=== PATIENT | male | born 1975 | race Two or more races ===

== ENCOUNTER 2017-02-12 10:14 | Emergency (ER) | payer SELFPAY ==
[~2017-02-12] VITALS: Ht 172.7 cm; Wt 86.2 kg
[2017-02-12] MEDS ORDERED: MORPHINE SULFATE 10 MG/ML VIAL. IV ONE (10:30)
[2017-02-12] MEDS ORDERED: DIPHTH,PERTUSS(ACELL),TET TOX 0.5 ML DISP.SYRIN. VAX IM ONE (10:30)
--- NOTE | 2017-02-12 10:36 | PHYS DOC ---
Adult General Chief Complaint Chief Complaint: HAND PROBLEM HPI HPI Patient is a 41 year old male presenting to the emergency department for evaluation of right hand pain after sustaining an injury yesterday at noon where he injected acrylic sealer onto his hand with a high pressure injection. He thinks that it was at least 4000 PSI but is unsure. His tetanus is not up-to -date so it was updated here. Patient says that he is otherwise healthy and takes no medications. Review of Systems Review of Systems Constitutional: Denies fever or chills [] Eyes: Denies change in visual acuity, redness, or eye pain [] HENT: Denies nasal congestion or sore throat [] Respiratory: Denies cough or shortness of breath [] Cardiovascular: No additional information not addressed in HPI [] GI: Denies abdominal pain, nausea, vomiting, bloody stools or diarrhea [] : Denies dysuria or hematuria [] Musculoskeletal: Denies back pain or joint pain [] Integument: + hand wound on R Neurologic: Denies headache, focal weakness or sensory changes [] Current Medications Current Medications Current Medications Medications (Trade) Dose Ordered Sig/Glen Start Time Stop Time Status Last Admin Dose Admin Diphtheria/ Tetanus/Acell Pertussis (Boostrix) 0.5 ml ONCE ONCE 02/12/17 10:30 02/12/17 10:32 DC 02/12/17 11:06 0.5 ML Morphine Sulfate 5 mg 1X ONCE 02/12/17 10:30 02/12/17 10:32 DC 02/12/17 11:07 5 MG Allergies Allergies Allergies Coded Allergies Type Severity Reaction Last Updated Verified No Known Drug Allergies 02/12/17 No Physical Exam Physical Exam Constitutional: Well developed, well nourished, no acute distress, non-toxic appearance. [] HENT: Normocephalic, atraumatic, bilateral external ears normal, oropharynx moist, no oral exudates, nose normal. [] Eyes: PERRLA, EOMI, conjunctiva normal, no discharge. [] Neck: Normal range of motion, no tenderness, supple, no stridor. [] Cardiovascular:Heart rate regular rhythm, no murmur [] Lungs & Thorax: Bilateral breath sounds clear to auscultation [] Abdomen: Bowel sounds normal, soft, no tenderness, no masses, no pulsatile masses. [] Skin: Warm, dry, no erythema, no rash. [] Back: No tenderness, no CVA tenderness. [] Extremities: Right ventral hand over distal index finger metacarpal with wound that appears to have mild drainage but there is surrounding erythema and significant swelling that extends to his dorsal aspect. He has pain to palpation but surprisingly no pain on finger flexion but some pain on finger extension. There is fusiform swelling around his index finger. Neurologic: Alert and oriented X 3, normal motor function, normal sensory function, no focal deficits noted. [] Psychologic: Affect normal, judgement normal, mood normal. [] Current Patient Data Vital Signs Vital Signs Date Time Temp Pulse Resp B/P (MAP) Pulse Ox O2 Delivery O2 Flow Rate FiO2 02/12/17 11:07 18 02/12/17 11:03 83 131/82 (98) 98 02/12/17 10:24 98.5 Room Air 98.5 Lab Values Laboratory Tests Test 02/12/17 10:45 Sodium Level 143 mmol/L (136-145) Potassium Level 3.6 mmol/L (3.5-5.1) Chloride Level 105 mmol/L (98-107) Carbon Dioxide Level 30 mmol/L (21-32) Anion Gap 8 (6-14) Blood Urea Nitrogen 24 mg/dL (8-26) Creatinine 0.9 mg/dL (0.7-1.3) Estimated GFR (Cockcroft-Gault) 93.5 BUN/Creatinine Ratio 27 (6-20) H Glucose Level 97 mg/dL (70-99) Calcium Level 7.9 mg/dL (8.5-10.1) L Total Bilirubin Pending Aspartate Amino Transferase (AST) Pending Alanine Aminotransferase (ALT) Pending Alkaline Phosphatase Pending Creatine Kinase Pending Total Protein Pending Albumin Pending Albumin/Globulin Ratio Pending Laboratory Tests 02/12/17 10:45 EKG EKG [] Radiology/Procedures Radiology/Procedures Examination: 3 views of the right hand History: History of right hand pain, swelling Comparison: None available Findings: The alignment of the metacarpophalangeal joint, interphalangeal joint grossly appears unremarkable. There is no acute fracture identified. Probable mild soft tissue swelling medial to the thumb. Impression: No acute osseous findings. Probable mild soft tissue swelling medial to the thumb. DICTATED and SIGNED BY: LADONNA OSULLIVAN MD DATE: 02/12/17 1046 Course & Med Decision Making Course & Med Decision Making I spoke to Dr. Ruff and he confirmed that patient would likely require surgical intervention which we do not provide here and recommended transfer. Patient accepted by Dr. Valenzuela at [facility] and they wanted him to go to [facility] for urgent surgery. Patient sent in stable condition. Patient aware and agreeable with plan. Dragon Disclaimer Dragon Disclaimer This electronic medical record was generated, in whole or in part, using a voice recognition dictation system. Departure Departure Impression: Primary Impression: High pressure injury of right hand Additional Impression: Cellulitis of hand, right Disposition: 05 TRANSFER OTHER ([facility]) Condition: STABLE Referrals: ALMA CUENCA DO (PCP) Problem Qualifiers RL COLBY DO Feb 12, 2017 10:36
--- NOTE | 2017-02-12 10:54 | RAD ---
Examination: 3 views of the right hand History: History of right hand pain, swelling Comparison: None available Findings: The alignment of the metacarpophalangeal joint, interphalangeal joint grossly appears unremarkable. There is no acute fracture identified. Probable mild soft tissue swelling medial to the thumb. Impression: No acute osseous findings. Probable mild soft tissue swelling medial to the thumb.
[2017-02-12 10:58] LABS: BASO % 0 % (0-3); EOS % 1 % (0-3); HEMOGLOBIN 14.8 g/dL (13.0-17.5); LYMPH # 1.8 x10^3/uL (1.0-4.8); LYMPH % 17 % (24-48); MEAN CORPUSCULAR HEMOGLOBIN 31 pg (25-35); MEAN CORPUSCULAR HGB CONC 34 g/dL (31-37); MEAN CORPUSCULAR VOLUME 91 fL (79-100); MONO % 9 % (0-9); NEUT % 73 % (31-73); PLATELET COUNT 156 x10^3/uL (140-400); RED BLOOD COUNT 4.81 x10^6/uL (4.30-5.70); RED CELL DISTRIBUTION WIDTH 12.5 % (11.5-14.5); WHITE BLOOD COUNT 10.5 x10^3/uL (4.0-11.0)
[2017-02-12 11:03] VITALS: BP 131/82
[2017-02-12 11:08] LABS: CALCIUM 7.9 mg/dL (8.5-10.1); CREATININE 0.9 mg/dL (0.7-1.3); GFR 93.5; POTASSIUM 3.6 mmol/L (3.5-5.1)
[2017-02-12 11:14] LABS: ALBUMIN 3.7 g/dL (3.4-5.0); ALBUMIN/GLOBULIN RATIO 0.9 (1.0-1.7); TOTAL BILIRUBIN 0.5 mg/dL (0.2-1.0); TOTAL PROTEIN 7.6 g/dL (6.4-8.2)
[2017-02-12 11:32] LABS: PROTHROMBIN TIME PATIENT 12.2 SEC (11.7-14.0)
== END 2017-02-12 11:26 | disposition short-term general hospital (02) ==
LOC: ER 10:14
DX: L89.899 Pressure ulcer of other site, unspecified stage (principal); L03.113 Cellulitis of right upper limb
CPT/HCPCS: 36415; 73130; 80053; 82550; 85027; 85610; 85730; 90471; 90715; 96374; 99285; J2270